=== PATIENT | male | born 2005 | race Caucasian/White ===

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

== ENCOUNTER 2023-11-11 18:01 | Emergency (ER) | payer BC, OTHER ==
[~2023-11-11] VITALS: Ht 177.8 cm; Wt 68.8 kg
[2023-11-11] MEDS: BOOSTRIX VACCINE (TETANUS/DIPHTH/ACEL. PERTUSSIS) 0.5ML SYR IM ONE (18:37)
[2023-11-11] MEDS: LIDOCAINE W/EPINEPHRINE 1% 20ML VIAL SC ONE (19:10)
[2023-11-11 19:42] VITALS: BP 123/66; TEMP 98.7; O2SAT 97
== END 2023-11-11 19:47 | disposition home or self-care (01) ==
LOC: M ED 18:01
DX: S91.011A Laceration without foreign body, right ankle, initial encounter (principal); W27.8XXA Contact with other nonpowered hand tool, initial encounter; Y92.009 Unspecified place in unspecified non-institutional (private) residence as the place of occurrence of the external cause; Y93.9 Activity, unspecified; Y99.9 Unspecified external cause status